=== PATIENT | female | born 1970 | race Two or more races ===

== ENCOUNTER 2020-08-16 12:25 | Outpatient (REF) | payer BC, SELFPAY ==
--- NOTE | ~2020-08-16 | XR_ITS ---
EXAMINATION: XR BILATERAL HAND AND BILATERAL KNEES CLINICAL INFORMATION: Abnormal serum immunology findings. COMPARISON: None. TECHNIQUE: 3 views each hand. 3 views each knee. FINDINGS: Left hand: The interphalangeal, MCP and intercarpal joint spaces are maintained. No bony erosive changes, periapical spurring or soft tissue calcification or swelling seen. No visible acute fracture or dislocation. The scaphoid bone is intact. Right hand: There is no visible acute fracture or dislocation. There is mild periarticular spurring DIP joint 5th digit with flexion deformity. However, no bony erosive changes seen. The rest of the right hand joint space is maintained normal. No periosteal erosive changes. The scaphoid bone is intact. The intercarpal bones are intact. Right knee: There is loss of medial and patellofemoral compartment joint space with minimal periarticular spurring in the patellofemoral compartment. No abnormal joint effusion or loose body seen. No fracture. Left knee: There is [id number] loss of medial and patellofemoral compartment joint space with periarticular spurring in these compartments. No loose body seen. No bony erosive changes. No abnormal joint effusion. XR/XR knee LT 3V IMPRESSION: Likely degenerative arthritic changes and periapical spurring medial and peripheral compartment left knee. Degenerative arthritic changes with mild spurring medial and patellofemoral compartment right knee. There is mild flexion deformity DIP joint 5th digit with periapical spurring right hand. The rest of the joints are unremarkable in the right hand. The left hand is unremarkable.
--- NOTE | ~2020-08-16 | XR_ITS ---
EXAMINATION: XR BILATERAL HAND AND BILATERAL KNEES CLINICAL INFORMATION: Abnormal serum immunology findings. COMPARISON: None. TECHNIQUE: 3 views each hand. 3 views each knee. FINDINGS: Left hand: The interphalangeal, MCP and intercarpal joint spaces are maintained. No bony erosive changes, periapical spurring or soft tissue calcification or swelling seen. No visible acute fracture or dislocation. The scaphoid bone is intact. Right hand: There is no visible acute fracture or dislocation. There is mild periarticular spurring DIP joint 5th digit with flexion deformity. However, no bony erosive changes seen. The rest of the right hand joint space is maintained normal. No periosteal erosive changes. The scaphoid bone is intact. The intercarpal bones are intact. Right knee: There is loss of medial and patellofemoral compartment joint space with minimal periarticular spurring in the patellofemoral compartment. No abnormal joint effusion or loose body seen. No fracture. Left knee: There is [id number] loss of medial and patellofemoral compartment joint space with periarticular spurring in these compartments. No loose body seen. No bony erosive changes. No abnormal joint effusion. XR/XR hand wrist LT IMPRESSION: Likely degenerative arthritic changes and periapical spurring medial and peripheral compartment left knee. Degenerative arthritic changes with mild spurring medial and patellofemoral compartment right knee. There is mild flexion deformity DIP joint 5th digit with periapical spurring right hand. The rest of the joints are unremarkable in the right hand. The left hand is unremarkable.
--- NOTE | ~2020-08-16 | XR_ITS ---
EXAMINATION: XR BILATERAL HAND AND BILATERAL KNEES CLINICAL INFORMATION: Abnormal serum immunology findings. COMPARISON: None. TECHNIQUE: 3 views each hand. 3 views each knee. FINDINGS: Left hand: The interphalangeal, MCP and intercarpal joint spaces are maintained. No bony erosive changes, periapical spurring or soft tissue calcification or swelling seen. No visible acute fracture or dislocation. The scaphoid bone is intact. Right hand: There is no visible acute fracture or dislocation. There is mild periarticular spurring DIP joint 5th digit with flexion deformity. However, no bony erosive changes seen. The rest of the right hand joint space is maintained normal. No periosteal erosive changes. The scaphoid bone is intact. The intercarpal bones are intact. Right knee: There is loss of medial and patellofemoral compartment joint space with minimal periarticular spurring in the patellofemoral compartment. No abnormal joint effusion or loose body seen. No fracture. Left knee: There is [id number] loss of medial and patellofemoral compartment joint space with periarticular spurring in these compartments. No loose body seen. No bony erosive changes. No abnormal joint effusion. XR/XR hand wrist RT IMPRESSION: Likely degenerative arthritic changes and periapical spurring medial and peripheral compartment left knee. Degenerative arthritic changes with mild spurring medial and patellofemoral compartment right knee. There is mild flexion deformity DIP joint 5th digit with periapical spurring right hand. The rest of the joints are unremarkable in the right hand. The left hand is unremarkable.
--- NOTE | ~2020-08-16 | XR_ITS ---
EXAMINATION: XR BILATERAL HAND AND BILATERAL KNEES CLINICAL INFORMATION: Abnormal serum immunology findings. COMPARISON: None. TECHNIQUE: 3 views each hand. 3 views each knee. FINDINGS: Left hand: The interphalangeal, MCP and intercarpal joint spaces are maintained. No bony erosive changes, periapical spurring or soft tissue calcification or swelling seen. No visible acute fracture or dislocation. The scaphoid bone is intact. Right hand: There is no visible acute fracture or dislocation. There is mild periarticular spurring DIP joint 5th digit with flexion deformity. However, no bony erosive changes seen. The rest of the right hand joint space is maintained normal. No periosteal erosive changes. The scaphoid bone is intact. The intercarpal bones are intact. Right knee: There is loss of medial and patellofemoral compartment joint space with minimal periarticular spurring in the patellofemoral compartment. No abnormal joint effusion or loose body seen. No fracture. Left knee: There is [id number] loss of medial and patellofemoral compartment joint space with periarticular spurring in these compartments. No loose body seen. No bony erosive changes. No abnormal joint effusion. XR/XR knee RT 3V IMPRESSION: Likely degenerative arthritic changes and periapical spurring medial and peripheral compartment left knee. Degenerative arthritic changes with mild spurring medial and patellofemoral compartment right knee. There is mild flexion deformity DIP joint 5th digit with periapical spurring right hand. The rest of the joints are unremarkable in the right hand. The left hand is unremarkable.
[2020-08-16 14:07] LABS: MANUAL DIFF FLAG NO
[2020-08-16 14:20] LABS: Basophils Percent Auto 0.1 % (0-2); Eosinophils Percent Auto 0.5 % (0-4); Hematocrit 36.4 % (37-47); Hemoglobin 11.7 g/dl (12.0-16.0); Imm Gran Abs Auto 0.04 X10*3/uL (0.00-0.03); Imm Gran Pct Auto 0.5 % (0.0-0.4); Lymphocytes Absolute Auto 2.6 X10*3/uL (1.2-4.9); Mean Corpuscular HGB Conc 32.1 g/dl (31.0-35.0); Mean Corpuscular Volume 90.1 fL (80-98); Mean Platelet Volume 8.9 fL (9.4-12.3); Monocytes Absolute Auto 0.4 X10*3/uL (0.1-1.2); Neutrophils Absolute Auto 5.8 X10*3/uL (2.0-8.3); Neutrophils Percent Auto 64.9 % (45-73); Platelet Count 277 X10*3/uL (160-400); Red Blood Count 4.04 X10*6/uL (4.20-5.50); Red Cell Distribution Width 14.6 % (11.0-16.0); White Blood Count 8.9 X10*3/uL (4.8-10.8)
[2020-08-16 14:50] LABS: Erythrocyte Sedimentation Rate 21 MM/HR (0-20)
[2020-08-16 14:51] LABS: Alanine Aminotransferase 22 U/L (0-31); Albumin Level 3.9 g/dL (3.5-5.0); Alkaline Phosphatase 85 U/L (39-117); Anion Gap 16 (12-20); Aspartate Amino Transferase 17 U/L (5-31); Bilirubin Total 0.3 mg/dL (0.0-1.0); Blood Urea Nitrogen 16 mg/dL (9-16); Calcium 8.6 mg/dL (8.4-10.2); Carbon Dioxide 25 mmol/L (22-29); Chloride 106 mmol/L (96-108); Estimated Glomerular Filt Rate > 60; Glucose Random 83 mg/dL (60-115); Potassium 4.2 mmol/L (3.3-5.1); Rheumatoid Factor 42.5 IU/mL (<15.0); Sodium 143 mmol/L (135-145); Total Protein 6.8 g/dL (6.5-8.0)
[2020-08-17 08:31] LABS: Lyme Abs Screen <0.90 index
[2020-08-17 13:16] LABS: Antibody to SS-A Antigen <1.0 NEG AI (<1.0 NEG); Antibody to SS-B Antigen <1.0 NEG AI (<1.0 NEG)
[2020-08-18 23:32] LABS: Cyclic Citrullinated Peptide <16 UNITS
[2020-08-19 08:20] LABS: HBsAGNum1 0.18 S/CO (0.00-0.99); Hepatitis B Surface Antigen Negative (Negative)
[2020-08-19 08:24] LABS: HBc Num1 0.05 S/CO (0.00-0.79); Hepatitis B Core Antibody Nonreactive (Nonreactive); ~HepC Num1 0.06 S/CO (0.00-0.79); ~Hepatitis B Surface Antibody REACTIVE (Nonreactive); ~Hepatitis C Antibody Nonreactive (Nonreactive)
[2020-08-21 08:08] LABS: Hepatitis A Antibody IgM 0.09 Index (0-0.79); ~Hepatitis A Antibody IgM Nonreactive (Nonreactive)
== END 2020-08-16 12:26 | disposition home or self-care (01) ==
LOC: HO.LAB 12:25
PROVIDERS: PCP Nurse Practitioner Family; Visit Provider Student in an Organized Health Care Education/Training Program
DX: R76.8 Other specified abnormal immunological findings in serum (principal)
CPT/HCPCS: 36415; 73110; 73130; 73562; 80053; 85025; 85652; 86140; 86200; 86235; 86431; 86618; 86704; 86706; 86709; 86803; 87340

== ENCOUNTER → 2020-09-17 11:03 | Outpatient (BNVA) | payer BC, SELFPAY | PROVIDERS: PCP Nurse Practitioner Family; Visit Provider Student in an Organized Health Care Education/Training Program ==

== ENCOUNTER 2021-02-27 10:55 | Outpatient (REF) | payer BC, SELFPAY ==
[2021-02-27 12:00] LABS: MANUAL DIFF FLAG NO
[2021-02-27 12:45] LABS: Basophils Percent Auto 0.2 % (0-2); Eosinophils Absolute Auto 0.2 X10*3/uL (0.0-0.4); Hematocrit 35.5 % (37-47); Hemoglobin 11.4 g/dl (12.0-16.0); Imm Gran Abs Auto 0.08 X10*3/uL (0.00-0.03); Imm Gran Pct Auto 0.9 % (0.0-0.4); Lymphocytes Absolute Auto 2.3 X10*3/uL (1.2-4.9); Lymphocytes Percent Auto 26.6 % (20-40); Mean Corpuscular HGB Conc 32.1 g/dl (31.0-35.0); Mean Corpuscular Hemoglobin 29.6 pg (27.0-33.0); Mean Corpuscular Volume 92.2 fL (80-98); Monocytes Absolute Auto 0.4 X10*3/uL (0.1-1.2); Monocytes Percent Auto 5.1 % (2-11); Neutrophils Absolute Auto 5.6 X10*3/uL (2.0-8.3); Neutrophils Percent Auto 65.2 % (45-73); Platelet Count 270 X10*3/uL (160-400); Red Blood Count 3.85 X10*6/uL (4.20-5.50); Red Cell Distribution Width 14.8 % (11.0-16.0); White Blood Count 8.6 X10*3/uL (4.8-10.8)
[2021-02-27 13:03] LABS: Alanine Aminotransferase 33 U/L (0-31); Albumin Level 3.9 g/dL (3.5-5.0); Alkaline Phosphatase 85 U/L (39-117); Anion Gap 12 (12-20); Aspartate Amino Transferase 22 U/L (5-31); Bilirubin Total < 0.2 mg/dL (0.0-1.0); Blood Urea Nitrogen 15 mg/dL (9-16); C Reactive Protein 1.92 mg/dL (< or = 0.50); Calcium 9.1 mg/dL (8.4-10.2); Carbon Dioxide 30 mmol/L (22-29); Chloride 105 mmol/L (96-108); Estimated Glomerular Filt Rate > 60; Glucose Random 144 mg/dL (60-115); Potassium 4.1 mmol/L (3.3-5.1); Sodium 143 mmol/L (135-145); Total Protein 6.6 g/dL (6.5-8.0)
[2021-02-27 14:20] LABS: Erythrocyte Sedimentation Rate 21 MM/HR (0-20)
== END 2021-02-27 10:56 | disposition home or self-care (01) ==
LOC: HO.LAB 10:55
PROVIDERS: Student in an Organized Health Care Education/Training Program; PCP Nurse Practitioner Family; Visit Provider Nurse Practitioner Family
DX: M05.9 Rheumatoid arthritis with rheumatoid factor, unspecified (principal); Z79.899 Other long term (current) drug therapy
CPT/HCPCS: 36415; 80053; 85025; 85652; 86140